=== PATIENT | male | born 1990 | race Caucasian/White ===

== ENCOUNTER 2020-07-16 06:55 | Emergency (ER) | payer MEDICAID ==
[~2020-07-16] VITALS: Ht 182.9 cm; Wt 72.6 kg
[2020-07-16 07:01] VITALS: BP 120/85
--- NOTE | 2020-07-16 07:01 | NUR ---
TO BED AMBULATORY
--- NOTE | 2020-07-16 07:12 | NUR ---
29 Y/O MALE C/O PAIN, REDNESS, SWELLING ON HIS LEFT HAND FOR 4 DAYS. PT STATES HE USED FOR HEROINE PURPOSES BUT MISSED. PT STATES PAIN IS 6/10 THAT IS PRESSURE LIKE/TENDER NONRADIATING. ON ASSESSMENT, SKIN IS WARM, <3 SECONDS CAP REFILL WITH +2 RADIAL PULSES EQUAL BILATERAL, WITH LIMITED ROM. PT STATES HE USED HEROINE THIS MORNING AROUND 0500. PT DENIES N/V/SOB BUT STATES HE HAS CHILLS/FEELS UNEASY. PT IS A&O X4 WITH EVEN AND UNLABORED RESPIRATIONS. DENIES PMH NKA
--- NOTE | 2020-07-16 07:15 | NUR ---
DR TOMLINSON AT BEDSIDE FOR EVALUATION
[2020-07-16] MEDS ORDERED: VANCOMYCIN 1,000 MG in DEXTROSE 5% 250 ML IV ONE (07:20)
--- NOTE | 2020-07-16 07:27 | NUR ---
lab support technician at pt bedside.
[2020-07-16] MEDS ORDERED: cefTRIAXone 1,000 MG VIAL ONE (07:34)
[2020-07-16 07:42] LABS: BASOPHILS # (AUTO) 0.1 K/uL (0.00-0.22); BASOPHILS % (AUTO) 0.5 % (0.0-2.0); EOSINOPHILS # (AUTO) 0.6 K/uL (0-0.4); EOSINOPHILS % (AUTO) 4.7 % (0.0-4.0); HEMOGLOBIN 12.7 g/dL (12.0-18.0); LYMPHOCYTES # (AUTO) 2.5 K/uL (2.0-11.5); LYMPHOCYTES % (AUTO) 20.2 % (20.5-51.1); MEAN CORPUSCULAR HEMOGLOBIN 30 pg (27-31); MEAN CORPUSCULAR HGB CONC 34 g/dL (33-37); MEAN CORPUSCULAR VOLUME 85.8 fL (80-94); MONOCYTES # (AUTO) 0.6 K/uL (0.8-1.0); MONOCYTES % (AUTO) 4.8 % (1.7-9.3); NEUTROPHILS # (AUTO) 8.6 K/uL (1.8-7.7); NEUTROPHILS % (AUTO) 69.8 % (42.2-75.2); PLATELET COUNT (AUTO) 419 K/uL (140-450); RED BLOOD CELL COUNT(AUTO) 4.31 MIL/uL (4.20-6.10); RED CELL DISTRIBUTION WIDTH 13.4 % (11.6-13.7); WHITE BLOOD COUNT (AUTO) 12.3 K/uL (4.8-10.8)
[2020-07-16 07:53] LABS: ANION GAP 11.5 (8-16); CARBON DIOXIDE 31.1 mmol/L (21-32); POTASSIUM 3.6 mmol/L (3.5-5.1)
[2020-07-16] MEDS ORDERED: VANCOMYCIN 1,000 MG VIAL ONE (07:55)
--- NOTE | 2020-07-16 08:32 | NUR ---
CALLED AND GAVE REPORT TO MAG CONWAY FOR TRANFER TO [facility] FOR [facility] [phone]
--- NOTE | 2020-07-16 09:09 | NUR ---
PT SLEEPING IN BED WITH EVEN AND UNLABORED RESPIRATIONS. BED IN LOWEST POSITION, BRAKES LOCKED, X1 SIDERAIL UP.
--- NOTE | 2020-07-16 09:25 | NUR ---
Patient to be transferred to [facility]. Is being transferred due to higher level of care. Receiving facility has accepting physician and available space. ER physician has signed transfer form. Patient or responsible libertarian has agreed to transfer and signed form. Patient belongings inventoried and will be sent with patient. Copy of nursing notes, lab reports, EKG, Physicians Orders and X-rays to be sent with patient. Report called to Lory CONWAY at receiving facility. [facility] ambulance service has been called for transfer. ETA is 30.
[2020-07-16 09:26] VITALS: BP 130/82
== END 2020-07-16 09:35 | disposition designated cancer center or children's hospital (05) ==
LOC: MED 06:55
DX: B08.4 Enteroviral vesicular stomatitis with exanthem (principal); F14.10 Cocaine abuse, uncomplicated
CPT/HCPCS: 36415; 73130; 80048; 83605; 85025; 86140; 87040; 90471; 90715; 96365; 96366; 96368; 99285; J0696; J3370; J7060

== ENCOUNTER 2020-11-23 02:33 | Emergency (ER) | payer SELFPAY ==
[~2020-11-23] VITALS: Ht 182.9 cm; Wt 79.4 kg
[2020-11-23 02:56] VITALS: BP 140/74
--- NOTE | 2020-11-23 03:02 | NUR ---
PT TAKEN TO BED 4
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
[2020-11-23] MEDS ORDERED: BACITRACIN OINT 500 UNITS/GM PKT TP ONE (03:05)
[2020-11-23] MEDS ORDERED: LIDOCAINE MPF 1% 10 MG/ML VIAL INJ ONE (03:05)
--- NOTE | 2020-11-23 03:27 | NUR ---
Dr. Murry examining patient.
[2020-11-23 03:43] VITALS: BP 140/74
--- NOTE | 2020-11-23 03:43 | NUR ---
Patient discharged with v/s stable. Written and verbal after care instructions given and explained. Patient verbalized understanding. Ambulatory with steady gait. ID band removed. All questions addressed prior to discharge. Advised to follow up with PMD.
== END 2020-11-23 03:43 | disposition home or self-care (01) ==
LOC: MED 02:33
DX: S61.512A Laceration without foreign body of left wrist, initial encounter (principal); F10.129 Alcohol abuse with intoxication, unspecified; F14.10 Cocaine abuse, uncomplicated; W26.0XXA Contact with knife, initial encounter; Y93.89 Activity, other specified; Y92.89 Other specified places as the place of occurrence of the external cause; Y99.8 Other external cause status
CPT/HCPCS: 12001; 99282; J2001